=== PATIENT | female | born 1970 | race Caucasian/White ===

== ENCOUNTER → 2021-10-06 | Outpatient (CLI) | payer MEDICARE, OTHER ==
--- NOTE | 2021-10-06 15:03 | XR ---
EXAMINATION TYPE: XR chest 2V DATE OF EXAM: 10/06/2021 COMPARISON: NONE HISTORY: Asthma, shortness of breath, J 45.20 TECHNIQUE: Frontal and lateral views of the chest are obtained. FINDINGS: There is no focal air space opacity, pleural effusion, or pneumothorax seen. The cardiac silhouette size is within normal limits. The osseous structures are intact, there is thoracic spond ylosis and degenerative disc disease in the lumbar spine, spinal curvature noted. Mild biapical pleu ral thickening is symmetric. Bronchial wall thickening is noted. IMPRESSION: Findings are consistent with reactive airways disease, bronchitis, follow-up as indicate d
== END | disposition home or self-care (01) ==
LOC: RADXRYALE 12:02
PROVIDERS: ATTEND Internal Medicine
DX: J45.20 Mild intermittent asthma, uncomplicated (principal); J40 Bronchitis, not specified as acute or chronic
CPT/HCPCS: 71046

== ENCOUNTER → 2021-10-06 | Outpatient (CLI) | payer MEDICARE, OTHER ==
--- NOTE | 2021-10-08 07:38 | MM ---
Reason for Exam: Screening (asymptomatic). Patient History: First Full-Term at age 21. Risk Values: Treva 5 year model risk: 0.6%. NCI Lifetime model risk: 6.1%. Tissue Density: The breast tissue is heterogeneously dense. This may lower the sensitivity of mammography. Findings: Analyzed By CAD. There is a 1 cm mass far upper outer left breast of 14 cm from the nipple. Additional views are recommended. Overall Assessment: Incomplete: need additional imaging evaluation, BI-RAD 0 Management: Diagnostic Mammogram of the left breast. A clinical breast exam by your physician is recommended on an annual basis and results should be correlated with mammographic findings. Electronically signed and approved by: Jose Paul M.D. Radiologis
== END | disposition home or self-care (01) ==
LOC: RADMAMWWP 13:19
PROVIDERS: ATTEND Internal Medicine
DX: Z12.31 Encounter for screening mammogram for malignant neoplasm of breast (principal)
CPT/HCPCS: 77063; 77067

== ENCOUNTER → 2021-10-20 | Outpatient (CLI) | payer MEDICARE, OTHER ==
--- NOTE | 2021-10-27 08:45 | MM ---
Reason for Exam: Additional evaluation requested from abnormal screening. Last screening mammogram was performed less than 1 month ago. Patient History: Menarche at age 14. First Full-Term at age 21. Postmenopausal. Risk Values: Treva 5 year model risk: 0.7%. NCI Lifetime model risk: 6.7%. Prior Study Comparison: 10/06/2021 Bilateral MG 3D screening mammo w/cad, [facility]. Tissue Density: Left: There are scattered fibroglandular densities. Findings: Analyzed By CAD. Under compression there is persistent density in the upper outer left breast. Additional evaluation with ultrasound is recommended. Technique: Method: Targeted. Findings: A benign-appearing lymph node is present with a hyper colic hilum and vascular pedicle. This correlates with the mammogram. Overall Assessment: Benign, BI-RAD 2 Assessment: MG 3D work up w/cad LT - Left: Incomplete: need additional imaging evaluation, BI-RAD 0. US breast workup limited LT - Left: Benign, BI-RAD 2. Management: Screening Mammogram of both breasts. A clinical breast exam by your physician is recommended on an annual basis and results should be correlated with mammographic findings. Results were given to the patient verbally at the time of exam. Electronically signed and approved by: Michael Sainz D.O. Radiologis
== END | disposition home or self-care (01) ==
LOC: RADMAMWWP 15:01
PROVIDERS: ATTEND Internal Medicine
DX: R92.8 Other abnormal and inconclusive findings on diagnostic imaging of breast (principal); Z78.0 Asymptomatic menopausal state
CPT/HCPCS: 77065; 76642; G0279; 77061

== ENCOUNTER → 2021-10-21 | Outpatient (CLI) | payer MEDICARE, OTHER ==
--- NOTE | 2021-10-22 21:15 | CT ---
EXAMINATION TYPE: CT chest w con DATE OF EXAM: 10/21/2021 COMPARISON: None available HISTORY: asthma. Scarring of the lung CT DLP: 785 mGycm Automated exposure control for dose reduction was used. TECHNIQUE: CT scan of the chest is performed with IV Contrast, patient injected with 70 mL of Isovue 300. FINDINGS: LUNGS: Expiratory exposure with incomplete lung expansion. Linear atelectasis seen in the middle lobe and the left lung base. 3 mm nodule in the middle lobe with 3 mm nodule in the left lower lobe. Susp ected mild COPD. Unremarkable lungs otherwise. Patent trachea and main bronchi. No pleural effusion. MEDIASTINUM: Scattered subcentimeter bilateral axillary, mediastinal and possibly hilar lymph nodes. No pathologically enlarged lymph nodes in the chest. No gross cardiomegaly. Patent major mediastinal vessels. No pericardial effusion is seen. OTHER: Enlarged heterogeneous thyroid gland, please correlate with thyroid function tests and thyroi d ultrasound results. Contracted gallbladder, possibly due to nonfasting. No gross aggressive bone le celina. IMPRESSION: No significant pulmonary fibrotic changes. Few pulmonary nodules measuring up to 3 mm, requiring no f urther follow-up if low risk patient. If high risk patient, optional follow-up CT scan in 12 months c an be considered. Other incidental findings and recommendations as described above.
== END | disposition home or self-care (01) ==
LOC: RADCTMAIN 15:02
PROVIDERS: ATTEND Internal Medicine
DX: R91.8 Other nonspecific abnormal finding of lung field (principal)
CPT/HCPCS: 71260; Q9967

== ENCOUNTER → 2021-11-29 | Outpatient (CLI) | payer MEDICARE, OTHER ==
--- NOTE | 2021-11-29 15:29 | US ---
EXAMINATION TYPE: US thyroid st tissue head/neck DATE OF EXAM: 11/29/2021 COMPARISON: NONE CLINICAL HISTORY: E07.9 DISORDER OF THYROID. abn labwork, no complaints of pain GLAND SIZE: Right Lobe: 5.1 x 2.0 x 2.1 cm Overall Parenchyma: heterogenous Left Lobe: 6.6 x 2.5 x 2.2 cm Overall Parenchyma: heterogeneous Isthmus Thickness: 1.2 cm Bilateral neck scanned, no evidence of lymphadenopathy. Enlarged, diffusely heterogeneous and lobula r appearance to the thyroid. No distinct nodules noted. IMPRESSION: Thyromegaly without discrete nodules.
== END | disposition home or self-care (01) ==
LOC: RADUSWWP 14:37
PROVIDERS: ATTEND Internal Medicine
DX: E07.9 Disorder of thyroid, unspecified (principal)
CPT/HCPCS: 76536

== ENCOUNTER → 2022-01-04 | Outpatient (CLI) | payer MEDICARE, OTHER ==
--- NOTE | 2022-01-04 20:30 | XR ---
EXAMINATION TYPE: XR shoulder limited RT DATE OF EXAM: 01/04/2022 5:00 PM INDICATION: Patient age:Female; 51 years old; Reason for study: [id number] RT ARM PAIN; COMPARISON: None TECHNIQUE: The right shoulder was examined in AP, internally rotated. FINDINGS: No evidence of acute osseous pathology, joint dislocation, or soft tissue swelling. The remaining por tions of the visualized chest are unremarkable. IMPRESSION: No acute osseous pathology.
--- NOTE | 2022-01-04 20:36 | XR ---
EXAMINATION TYPE: XR hand complete RT DATE OF EXAM: 01/04/2022 5:00 PM INDICATION: Patient age:Female; 51 years old; Reason for study: [id number] RT ARM PAIN; COMPARISON: None TECHNIQUE: Frontal, lateral and oblique views of the right hand were obtained. FINDINGS: Normal alignment of the visualized joints. No acute osseous pathology is identified. No e vidence of soft tissue swelling. Mild ulnar negative variance. IMPRESSION: No definitive finding to correlate for patient's pain. No acute osseous pathology. Consider MRI in th e area of patient's pain for further evaluation.
== END | disposition home or self-care (01) ==
LOC: RADXRYALE 16:33
PROVIDERS: ATTEND Internal Medicine
DX: M79.601 Pain in right arm (principal)